=== PATIENT | male | born 1950 | race African-American/Black ===

== ENCOUNTER 2022-01-17 16:39 | Observation (INO) | payer OTHER ==
[2022-01-17 16:57] VITALS: BMI 25.8
[2022-01-17] MEDS ORDERED: Dextrose 50% Abboject 50 ML SYRINGE SLOW IVP PRN (18:33)
[2022-01-17] MEDS ORDERED: HumaLOG 300 UNITS/3 ML VIAL SC PRN ×2 (18:33)
[2022-01-17] MEDS ORDERED: hydrALAZINE 20 MG/ML VIAL SLOW IVP PRN (18:33)
[2022-01-17] MEDS ORDERED: Dextrose 5% in Water 1,000 ML IV PRN (18:33)
[2022-01-17] MEDS ORDERED: Nitroglycerin 0.4 MG TAB (25 Tab Bottle) SL PRN (18:33)
[2022-01-17] MEDS ORDERED: Acetaminophen 325 MG TAB PO PRN (18:33)
[2022-01-17 19:33] LABS: Troponin I 0.018 ng/mL (< 0.028)
[2022-01-17 22:51] LABS: Troponin I 0.027 ng/mL (< 0.028)
[2022-01-17] MEDS: Sodium Chloride 0.9% 1,000 ML IV SCH (23:36)
[2022-01-17] MEDS: Nitroglycerin 2% Ointment 1 INCH/1 GM Packet TOP SCH (23:37)
[2022-01-17] MEDS: Heparin 5,000 UNITS/ML VIAL SC SCH (23:41)
[2022-01-18] MEDS ORDERED: Morphine 4 MG/ML VIAL SLOW IVP SCH (00:45)
[2022-01-18 03:30] LABS: Troponin I 0.027 ng/mL (< 0.028)
[2022-01-18 05:49] LABS: #Neutrophils 7.1 10x3/uL (1.5-8.4); %Basophils 0.2 % (0.0-2.0); %Eosinophils 0.1 % (0.0-6.0); %Lymphocytes 16.3 % (18.0-47.0); %Monocytes 10.1 % (0.0-10.0); Hemoglobin 12.5 g/dL (13.5-17.5); Mean Corpuscular HGB CONC 34.8 g/dL (32.0-36.0); Mean Corpuscular Hemoglobin 31.8 pg (27.0-33.0); Mean Corpuscular Volume 91.3 fl (81.2-95.1); Mean Platelet Volume 10.7 fl (7.4-10.4); Platelet Count 175 10x3/uL (150-450); RBC Distribution Width 12.8 % (11.5-14.5); Red Blood Cell (RBC) Count 3.93 10x6/uL (4.32-5.72); White Blood Cell (WBC) Count 9.7 10x3/uL (3.5-10.5)
[2022-01-18 06:02] LABS: Anion Gap 16 mmol/L (10-20); BUN (Urea Nitrogen) 27 mg/dL (8.4-25.7); Calc. Creatinine Clearance 50 mL/min (70-130); Calcium 9.1 mg/dL (7.8-10.44); Carbon Dioxide 21 mmol/L (23-31); Cardiac Risk 3.3 (Less than 4.5); Chloride 103 mmol/L (98-107); Cholesterol 200 mg/dl (< 200 Desired); Estimated GFR 43; Glucose 300 mg/dL (83-110); HDL Cholesterol 60 mg/dL (>60 Neg Risk); LDL Cholesterol, Calculated 126 mg/dL; Potassium 4.3 mmol/L (3.5-5.1); Sodium 136 mmol/L (136-145); Triglycerides 69 mg/dL (Less than 150)
[2022-01-18 06:06] LABS: Troponin I 0.061 ng/mL (< 0.028)
[2022-01-18] MEDS: Nitroglycerin 2% Ointment 1 INCH/1 GM Packet TOP SCH ×2 (07:36→14:44)
[2022-01-18] MEDS ORDERED: Aspirin 325 MG TAB PO SCH (09:00)
[2022-01-18] MEDS ORDERED: Nitroglycerin 0.4 MG TAB (25 Tab Bottle) SL PRN (09:05)
[2022-01-18] MEDS ORDERED: Albuterol Sulfate 2.5 mg/3 ml Neb NEB PRN (09:13)
[2022-01-18] MEDS: Heparin 5,000 UNITS/ML VIAL SC SCH (09:59)
[2022-01-18] MEDS: Sodium Chloride 0.9% 1,000 ML IV SCH (12:50)
[2022-01-18 12:54] VITALS: BP 158/71; TEMP 98
[2022-01-18] MEDS ORDERED: Gabapentin 300 MG CAP PO SCH (21:00)
[2022-01-19] MEDS ORDERED: Amlodipine 10 MG TAB PO SCH (09:00)
[2022-01-19] MEDS ORDERED: Empagliflozin 10 MG TAB PO SCH (09:00)
[2022-01-19] MEDS ORDERED: [UNRECOGNIZED DRUG - OTHER] PO SCH (09:00)
[2022-01-19] MEDS ORDERED: LEVODOPA PO SCH (09:00)
[2022-01-19] MEDS ORDERED: Donepezil HCl 5 MG TAB PO SCH (09:00)
[2022-01-19] MEDS ORDERED: CARBIDOPA PO SCH (09:00)
[2022-01-19] MEDS ORDERED: Clopidogrel Bisulfate 75 MG TAB PO SCH (09:00)
[2022-01-19] MEDS ORDERED: Bupropion 150 MG XL TAB PO SCH (09:00)
[2022-01-19] MEDS ORDERED: Colchicine 0.6 MG TAB PO SCH (09:00)
== END 2022-01-18 14:54 | disposition home or self-care (01) ==
LOC: INTOOBSV 16:39 → CSHTELE 16:39
PROVIDERS: ADMIT Internal Medicine; ATTEND Internal Medicine
DX: R07.9 Chest pain, unspecified (principal); I12.9 Hypertensive chronic kidney disease with stage 1 through stage 4 chronic kidney disease, or unspecified chronic kidney disease; E11.22 Type 2 diabetes mellitus with diabetic chronic kidney disease; N18.30 Chronic kidney disease, stage 3 unspecified; I25.10 Atherosclerotic heart disease of native coronary artery without angina pectoris; F41.9 Anxiety disorder, unspecified; Z87.891 Personal history of nicotine dependence; Z88.8 Allergy status to other drugs, medicaments and biological substances; Z95.5 Presence of coronary angioplasty implant and graft; Z79.899 Other long term (current) drug therapy
CPT/HCPCS: 80048; 80061; 82962 ×2; 84484 ×3; 85025; 93005; 96372 ×2; 96374; 96375; G0378 ×2; 36415; 36416; 93010; J0360; J1644; J2270; J7050

== ENCOUNTER 2022-10-05 15:19 | Outpatient (CLI) | payer OTHER | END 2022-10-05 15:20 | disposition home or self-care (01) | LOC: CSHRAD 15:19 | PROVIDERS: ATTEND Specialist | DX: R06.02 Shortness of breath (principal) | CPT/HCPCS: 71046 ==

== ENCOUNTER 2022-10-20 10:00 | Emergency (ER) | payer OTHER ==
[2022-10-20 10:48] LABS: #Eosinphils 0.1 10x3/uL (0.0-0.5); #Monocytes 0.5 10x3/uL (0.0-1.1); #Neutrophils 3.1 10x3/uL (1.5-8.4); %Basophils 0.3 % (0.0-2.0); %Eosinophils 2.3 % (0.0-6.0); %Lymphocytes 37.4 % (18.0-47.0); %Monocytes 7.7 % (0.0-10.0); %Neutrophils 52.1 % (40.0-75.0); Hematocrit 39.6 % (38.8-50.0); Hemoglobin 12.8 g/dL (13.5-17.5); Mean Corpuscular HGB CONC 32.3 g/dL (32.0-36.0); Mean Corpuscular Hemoglobin 30.4 pg (27.0-33.0); Mean Corpuscular Volume 94.1 fl (81.2-95.1); Platelet Count 221 10x3/uL (150-450); RBC Distribution Width 12.1 % (11.5-14.5); Red Blood Cell (RBC) Count 4.21 10x6/uL (4.32-5.72)
[2022-10-20 11:23] LABS: Troponin I 0.015 ng/mL (< 0.028)
[2022-10-20 11:27] LABS: ALT (SGPT) 18 U/L (8-55); AST (SGOT) 18 U/L (5-34); Albumin 4.2 g/dL (3.4-4.8); Alkaline Phosphatase 63 U/L (40-110); Anion Gap 14 mmol/L (10-20); BUN (Urea Nitrogen) 15 mg/dL (8.4-25.7); Bilirubin, Total 0.7 mg/dL (0.2-1.2); Calc. Creatinine Clearance 0 mL/min (70-130); Calcium 9.6 mg/dL (7.8-10.44); Carbon Dioxide 26 mmol/L (23-31); Chloride 104 mmol/L (98-107); Estimated GFR 41; Globulin 3.7 g/dL (2.4-3.5); Glucose 209 mg/dL (83-110); Magnesium 1.6 mg/dL (1.6-2.6); Potassium 4.9 mmol/L (3.5-5.1); Protein, Total 7.9 g/dL (5.8-8.1); Sodium 139 mmol/L (136-145)
[2022-10-20 12:08] LABS: Bilirubin Neg (Negative); Blood, Urine 10 (Negative); Clarity Clear (Clear); Glucose, Urine (Dipstick) 100 mg/dL (Negative); Ketone, Urine Negative (Negative); Leukocyte Negative (Negative); Nitrite Negative (Negative); Protein, Urine (Dipstick) 500 mg/dl (Neg-Trace); Urobilinogen Normal mg/dL (Less than 2); pH, Urine 6.5 (5.0-9.0)
[2022-10-20 12:29] LABS: Bacteria/HPF Rare-Few HPF (None Seen); CAUTI Indications for Culture Pelvic or flank pain; RBC/HPF 0-3 HPF (0-3); WBC/HPF 0-3 HPF (0-3)
[2022-10-20 12:31] LABS: Urine Culture Reflex No No
[2022-10-20 13:15] LABS: SARS-CoV-2 NAA Rapid Test Not Detected (NotDetected)
[2022-10-20 13:33] LABS: PTT 25.2 sec (22.0-33.0)
== END 2022-10-20 12:58 | disposition home or self-care (01) ==
LOC: CSHERS 10:00
DX: R53.81 Other malaise (principal); I10 Essential (primary) hypertension; I25.10 Atherosclerotic heart disease of native coronary artery without angina pectoris; E11.9 Type 2 diabetes mellitus without complications; Z87.891 Personal history of nicotine dependence; Z20.822 Contact with and (suspected) exposure to COVID-19
CPT/HCPCS: 0240U; 71045; 74176; 81001; 83735; 84484; 85610; 85730; 93005; 36415; 80053; 84443; 85025

== ENCOUNTER → 2022-11-27 | Day surgery (SDC) | payer OTHER ==
[2022-11-24 11:26] VITALS: BMI 25.6
[~2022-11-27] MED LIST: PROPOFOL 60 ML ONE
== END ==
LOC: CSHSDC 06:21
PROVIDERS: ATTEND Internal Medicine Gastroenterology
DX: R10.9 Unspecified abdominal pain (principal); E11.9 Type 2 diabetes mellitus without complications; I10 Essential (primary) hypertension; I25.10 Atherosclerotic heart disease of native coronary artery without angina pectoris; Z80.0 Family history of malignant neoplasm of digestive organs; Z86.010 Personal history of colon polyps; Z88.8 Allergy status to other drugs, medicaments and biological substances; Z53.8 Procedure and treatment not carried out for other reasons
CPT/HCPCS: J2704

== ENCOUNTER 2022-12-25 07:57 | Day surgery (SDC) | payer OTHER ==
[2022-12-22 10:48] VITALS: BMI 26.2
[2022-12-25] MEDS ORDERED: Midazolam HCl 2 mg/2 ml Vial ONE (10:20)
[2022-12-25] MEDS ORDERED: PROPOFOL 80 ML ONE (10:30)
[2022-12-25] MEDS ORDERED: PHENYLEPHRINE-NS 100 MCG/ML 10 ML SYRINGE ONE (10:32)
== END 2022-12-25 11:30 | disposition home or self-care (01) ==
LOC: CSHSDC 07:57
PROVIDERS: ATTEND Internal Medicine Gastroenterology
PROC: 0DBN8ZZ Excision of Sigmoid Colon, Via Natural or Artificial Opening Endoscopic (ICD-10-PCS; principal; 2022-12-25)
DX: Z12.11 Encounter for screening for malignant neoplasm of colon (principal); K57.30 Diverticulosis of large intestine without perforation or abscess without bleeding; K64.9 Unspecified hemorrhoids; K62.89 Other specified diseases of anus and rectum; E11.9 Type 2 diabetes mellitus without complications; E78.5 Hyperlipidemia, unspecified; I10 Essential (primary) hypertension; I25.10 Atherosclerotic heart disease of native coronary artery without angina pectoris; K21.9 Gastro-esophageal reflux disease without esophagitis; F32.A Depression, unspecified; Z88.8 Allergy status to other drugs, medicaments and biological substances; Z79.899 Other long term (current) drug therapy; Z98.890 Other specified postprocedural states
CPT/HCPCS: J2250; J2704

== ENCOUNTER 2023-02-01 06:04 | Day surgery (SDC) | payer OTHER ==
[2023-01-31 10:41] VITALS: BMI 25.5
[2023-02-01] MEDS ORDERED: Lidocaine 2% MPF 10 ML AMP (For Epidural Use) ONE (07:44)
[2023-02-01] MEDS ORDERED: PROPOFOL 40 ML ONE (07:44)
== END 2023-02-01 09:25 | disposition home or self-care (01) ==
LOC: CSHSDC 06:04
PROVIDERS: ATTEND Internal Medicine Gastroenterology
PROC: 0DJ08ZZ Inspection of Upper Intestinal Tract, Via Natural or Artificial Opening Endoscopic (ICD-10-PCS; principal; 2023-02-01)
DX: R10.9 Unspecified abdominal pain (principal); K21.9 Gastro-esophageal reflux disease without esophagitis; I10 Essential (primary) hypertension; I25.10 Atherosclerotic heart disease of native coronary artery without angina pectoris; E11.9 Type 2 diabetes mellitus without complications; G20.A1 Parkinson's disease without dyskinesia, without mention of fluctuations; B19.20 Unspecified viral hepatitis C without hepatic coma; J45.909 Unspecified asthma, uncomplicated; Z86.010 Personal history of colon polyps; Z80.0 Family history of malignant neoplasm of digestive organs; Z88.8 Allergy status to other drugs, medicaments and biological substances; Z96.41 Presence of insulin pump (external) (internal)
CPT/HCPCS: J2704

== ENCOUNTER 2023-02-07 22:20 | Inpatient (IN) | payer OTHER ==
[2023-02-07] MEDS ORDERED: Ondansetron PF 4 MG/2 ML Vial IVP PRN (23:57)
[2023-02-07] MEDS ORDERED: Senokot S 8.6-50 MG TAB PO PRN (23:57)
[2023-02-07] MEDS ORDERED: Acetaminophen 325 MG TAB PO PRN (23:57)
[2023-02-07] MEDS ORDERED: Dextrose 5% in Water 1,000 ML IV PRN (23:57)
[2023-02-07] MEDS ORDERED: Glucagon 1 MG/ML KIT IM PRN (23:57)
[2023-02-07] MEDS ORDERED: Calcium Carbonate 500 MG ChewTAB PO PRN (23:57)
[2023-02-07] MEDS ORDERED: Dextrose 50% Abboject 50 ML SYRINGE SLOW IVP PRN (23:57)
[2023-02-07] MEDS ORDERED: Nitroglycerin 0.4 MG TAB (25 Tab Bottle) SL PRN (23:59)
[2023-02-08] MEDS ORDERED: Ventolin HFA Inhaler 60 PUFF INHALER INH PRN
[2023-02-08] MEDS ORDERED: cloNIDine 0.1 MG TAB PO PRN (00:04)
[2023-02-08] MEDS ORDERED: Ketorolac Tromethamine 30 MG (1 mL) VIAL IVP SCH (00:15)
[2023-02-08 00:34] VITALS: BMI 25.5
[2023-02-08 05:10] LABS: Anion Gap 11 mmol/L (10-20); BUN (Urea Nitrogen) 16 mg/dL (8.4-25.7); CK (CPK) 126 U/L (30-200); Calc. Creatinine Clearance 40 mL/min (70-130); Calcium 8.7 mg/dL (7.8-10.44); Carbon Dioxide 28 mmol/L (23-31); Chloride 103 mmol/L (98-107); Estimated GFR 33; Glucose 155 mg/dL (83-110); Potassium 4.8 mmol/L (3.5-5.1); Sodium 137 mmol/L (136-145)
[2023-02-08 05:35] LABS: Troponin I 0.072 ng/mL (< 0.028)
[2023-02-08 05:40] LABS: Bilirubin Neg (Negative); Blood, Urine Negative (Negative); Clarity Clear (Clear); Glucose, Urine (Dipstick) Normal (Negative); Ketone, Urine Negative (Negative); Leukocyte Negative (Negative); Nitrite Negative (Negative); Protein, Urine (Dipstick) 30 mg/dl (Neg-Trace); Specific Gravity, Urine 1.005 (1.005-1.030); Urobilinogen Normal mg/dL (Less than 2); pH, Urine 6.5 (5.0-9.0)
[2023-02-08 05:49] LABS: Bacteria/HPF None Seen HPF (None Seen); RBC/HPF None Seen HPF (0-3); Squamous Epithelial 0-3 HPF (0-3); WBC/HPF 0-3 HPF (0-3)
[2023-02-08] MEDS ORDERED: [UNRECOGNIZED DRUG - OTHER] IH SCH (09:00)
[2023-02-08] MEDS ORDERED: FLU VACC QS2023(65UP)/MF59C/PF 60 MCG/0.5 ML SYRINGE IM ONE (09:00)
[2023-02-08] MEDS ORDERED: Enoxaparin 40 MG (0.4 mL) SYRINGE SC SCH ×2 (09:00→21:00)
[2023-02-08] MEDS: Clopidogrel Bisulfate 75 MG TAB PO SCH (09:28)
[2023-02-08] MEDS: Ranolazine 500 MG ER.TAB PO SCH ×2 (09:28→20:20)
[2023-02-08] MEDS: Aspirin 81 mg Enteric Coated Tablet PO SCH (09:28)
[2023-02-08] MEDS: Gabapentin 300 MG CAP PO SCH ×2 (09:29→20:20)
[2023-02-08] MEDS: Isosorbide Mononitrate 60 MG ER.TAB PO SCH (09:30)
[2023-02-08] MEDS: Furosemide 40 MG TAB PO SCH (09:30)
[2023-02-08] MEDS: Amlodipine 10 MG TAB PO SCH (09:30)
[2023-02-08] MEDS: Carbidopa/Levodopa 25-100 mg Tablet PO SCH (20:20)
[2023-02-08] MEDS: HYDROcodone/Acetaminophen 5/325 mg Tablet PO PRN (20:21)
[2023-02-08] MEDS ORDERED: Non-Formulary Medication 1 EACH (Gabapentin [Gabapentin] 600 MG Tablet) PO SCH (21:00)
[2023-02-09] MEDS: HYDROcodone/Acetaminophen 5/325 mg Tablet PO PRN ×2 (03:55→09:54)
[2023-02-09 03:58] LABS: Anion Gap 11 mmol/L (10-20); BUN (Urea Nitrogen) 18 mg/dL (8.4-25.7); Calc. Creatinine Clearance 44 mL/min (70-130); Carbon Dioxide 27 mmol/L (23-31); Chloride 107 mmol/L (98-107); Estimated GFR 37; Glucose 59 mg/dL (83-110); Potassium 5.3 mmol/L (3.5-5.1); Sodium 140 mmol/L (136-145)
[2023-02-09 04:37] LABS: #Eosinphils 0.3 10x3/uL (0.0-0.5); #Monocytes 0.5 10x3/uL (0.0-1.1); #Neutrophils 1.9 10x3/uL (1.5-8.4); %Basophils 0.6 % (0.0-2.0); %Eosinophils 5.7 % (0.0-6.0); %Lymphocytes 44.8 % (18.0-47.0); %Monocytes 10.3 % (0.0-10.0); %Neutrophils 38.4 % (40.0-75.0); Hematocrit 33.1 % (38.8-50.0); Hemoglobin 11.1 g/dL (13.5-17.5); Mean Corpuscular HGB CONC 33.5 g/dL (32.0-36.0); Mean Corpuscular Hemoglobin 31.5 pg (27.0-33.0); Mean Platelet Volume 9.9 fl (7.4-10.4); Platelet Count 197 10x3/uL (150-450); RBC Distribution Width 12.7 % (11.5-14.5); Red Blood Cell (RBC) Count 3.52 10x6/uL (4.32-5.72)
[2023-02-09] MEDS ORDERED: Furosemide 40 MG TAB PO SCH (09:00)
[2023-02-09] MEDS: Ranolazine 500 MG ER.TAB PO SCH (09:53)
[2023-02-09] MEDS: Gabapentin 300 MG CAP PO SCH (09:53)
[2023-02-09] MEDS: Amlodipine 10 MG TAB PO SCH (09:53)
[2023-02-09] MEDS: Clopidogrel Bisulfate 75 MG TAB PO SCH (09:53)
[2023-02-09] MEDS: Aspirin 81 mg Enteric Coated Tablet PO SCH (09:53)
[2023-02-09] MEDS: Isosorbide Mononitrate 60 MG ER.TAB PO SCH (09:53)
[2023-02-09] MEDS: Furosemide 40 MG TAB PO SCH (09:54)
[2023-02-09] MEDS: Carbidopa/Levodopa 25-100 mg Tablet PO SCH ×2 (09:57→14:19)
[2023-02-09 16:16] VITALS: BP 133/63; TEMP 97.7
== END 2023-02-09 16:51 | disposition home or self-care (01) | DRG 303 ==
LOC: CSHTELE 23:26 → OBSVTOIN 02-09 16:18
PROVIDERS: ADMIT Student in an Organized Health Care Education/Training Program; ATTEND Family Medicine
DX: I25.119 Atherosclerotic heart disease of native coronary artery with unspecified angina pectoris (principal); I13.0 Hypertensive heart and chronic kidney disease with heart failure and stage 1 through stage 4 chronic kidney disease, or unspecified chronic kidney disease; I50.32 Chronic diastolic (congestive) heart failure; I24.89 Other forms of acute ischemic heart disease; I16.0 Hypertensive urgency; E11.22 Type 2 diabetes mellitus with diabetic chronic kidney disease; Z88.8 Allergy status to other drugs, medicaments and biological substances; Z79.899 Other long term (current) drug therapy; Z79.4 Long term (current) use of insulin; Z98.49 Cataract extraction status, unspecified eye; Z82.49 Family history of ischemic heart disease and other diseases of the circulatory system; Z87.891 Personal history of nicotine dependence; N18.30 Chronic kidney disease, stage 3 unspecified; I70.212 Atherosclerosis of native arteries of extremities with intermittent claudication, left leg; I70.211 Atherosclerosis of native arteries of extremities with intermittent claudication, right leg; E11.51 Type 2 diabetes mellitus with diabetic peripheral angiopathy without gangrene; E78.2 Mixed hyperlipidemia; Z95.5 Presence of coronary angioplasty implant and graft
CPT/HCPCS: 36415; 36416; 76705; 80048; 81001; 82550; 84484; 85025; J1650; J1885; J7999

== ENCOUNTER 2024-01-01 15:19 | Inpatient (IN) | payer OTHER ==
[2024-01-01 16:38] LABS: Acetaminophen Less than 10 mcg/mL (Less than 10); Alcohol Less than 10.0 mg/dL (Less than 10); Salicylate Less than 8.0 mg/dL (Less than 8.0)
[2024-01-01 16:40] LABS: ALT (SGPT) 17 U/L (8-55); AST (SGOT) 19 U/L (5-34); Alkaline Phosphatase 60 U/L (40-110); Anion Gap 15 mmol/L (10-20); BUN (Urea Nitrogen) 17 mg/dL (8.4-25.7); Bilirubin, Total 0.5 mg/dL (0.2-1.2); Calc. Creatinine Clearance 0 mL/min (70-130); Calcium 9.8 mg/dL (7.8-10.44); Carbon Dioxide 21 mmol/L (23-31); Chloride 105 mmol/L (98-107); Estimated GFR 44; Globulin 3.7 g/dL (2.4-3.5); Glucose 93 mg/dL (83-110); Protein, Total 7.7 g/dL (5.8-8.1); Sodium 137 mmol/L (136-145)
[2024-01-01 16:46] LABS: #Basophils 0.04 10x3/uL (0.0-0.2); #Eosinophils 0.18 10x3/uL (0.0-0.5); #Monocytes 0.52 10x3/uL (0.0-1.1); #Neutrophils 2.67 10x3/uL (1.5-8.4); %Basophils 0.7 % (0.0-2.0); %Lymphocytes 41.9 % (18.0-47.0); %Monocytes 8.8 % (0.0-10.0); %Neutrophils 45.1 % (40.0-75.0); Hematocrit 39.7 % (38.8-50.0); Hemoglobin 13.4 g/dL (13.5-17.5); Mean Corpuscular HGB CONC 33.8 g/dL (32.0-36.0); Mean Corpuscular Hemoglobin 31.5 pg (27.0-33.0); Mean Corpuscular Volume 93.4 fL (81.2-95.1); Mean Platelet Volume 10.2 fL (7.4-10.4); Platelet Count 238 10x3/uL (150-450); RBC Distribution Width 12.2 % (11.5-14.5); Red Blood Cell (RBC) Count 4.25 10x6/uL (4.32-5.72); Troponin I 0.015 ng/mL (< 0.028); White Blood Cell (WBC) Count 5.9 10x3/uL (3.5-10.5)
[2024-01-01 16:50] LABS: Amphetamine Not Detected (NotDetected); Barbiturates Screen Not Detected (NotDetected); Benzodiazepine Screen Not Detected (NotDetected); Cocaine Metabolite Screen Not Detected (NotDetected); Methadone Not Detected (NotDetected); Methamphetamine Not Detected (NotDetected); Opiate Screen Not Detected (NotDetected); Oxycodone Screen Not Detected (NotDetected); Phencyclidine (PCP) Not Detected (NotDetected); THC/Cannabinoid Screen Detected (NotDetected); Tricyclic Screen Not Detected (NotDetected)
[2024-01-01] MEDS ORDERED: hydrALAZINE 20 MG/ML VIAL ONE (17:54)
[2024-01-01] MEDS ORDERED: Ketorolac Tromethamine 30 MG (1 mL) VIAL ONE (18:26)
[2024-01-01] MEDS ORDERED: niCARdipine 25 MG/10 ML SDV ONE (19:02)
[2024-01-01] MEDS ORDERED: Nitroglycerin 2% Ointment 1 INCH/1 GM Packet ONE (19:02)
[2024-01-01] MEDS ORDERED: Bisacodyl 5 MG TAB PO PRN (19:36)
[2024-01-01] MEDS ORDERED: Acetaminophen 325 MG TAB PO PRN (19:36)
[2024-01-01] MEDS ORDERED: Senokot S 8.6-50 MG TAB PO PRN (19:36)
[2024-01-01 19:51] LABS: Troponin I 0.025 ng/mL (< 0.028)
[2024-01-01] MEDS ORDERED: Ondansetron PF 4 MG/2 ML Vial ONE (19:52)
[2024-01-01] MEDS ORDERED: Morphine 2 MG/ML VIAL ONE (20:35)
[2024-01-01] MEDS ORDERED: Albuterol 2.5 MG (3 mL) NEB NEB PRN (21:14)
[2024-01-01] MEDS ORDERED: Ranolazine ER 500 MG TAB PO SCH (21:18)
[2024-01-01] MEDS ORDERED: Lorazepam 1 MG TAB PO PRN (21:29)
[2024-01-01] MEDS ORDERED: Lorazepam 2 MG/ML VIAL IM PRN (21:29)
[2024-01-01] MEDS ORDERED: Ondansetron ODT 4 MG TAB PO PRN (21:29)
[2024-01-01] MEDS ORDERED: Electrolyte Replacement Protocol 1 EACH FS SCH (21:30)
[2024-01-01] MEDS ORDERED: Thiamine HCl 200 MG/2 ML VIAL SLOW IVP SCH (21:30)
[2024-01-01 21:44] VITALS: BMI 25.9
[2024-01-01] MEDS ORDERED: Glucagon 1 MG/ML KIT IM PRN (21:52)
[2024-01-01] MEDS ORDERED: Dextrose 50% Abboject 50 ML SYRINGE SLOW IVP PRN (21:52)
[2024-01-01] MEDS ORDERED: Dextrose 5% in Water 1,000 ML IV PRN (21:52)
[2024-01-01] MEDS ORDERED: Famotidine 20 MG TAB PO SCH (22:00)
[2024-01-01] MEDS ORDERED: Nitroglycerin 2% Ointment 1 INCH/1 GM Packet TOP SCH ×2 (22:00)
[2024-01-02] MEDS ORDERED: Furosemide 40 MG TAB PO SCH (07:30)
[2024-01-02] MEDS ORDERED: Pentoxifylline 400 MG ER.TAB PO SCH (08:00)
[2024-01-02] MEDS ORDERED: Multivit, Therapeutic 1 TAB PO SCH (09:00)
[2024-01-02] MEDS ORDERED: Amlodipine 10 MG TAB PO SCH (09:00)
[2024-01-02] MEDS ORDERED: cloNIDine 0.1 MG TAB PO SCH (09:00)
[2024-01-02] MEDS ORDERED: Enoxaparin 40 MG (0.4 mL) SYRINGE SC SCH (09:00)
[2024-01-02] MEDS ORDERED: Carbidopa/Levodopa 25-100 mg Tablet PO SCH (09:00)
[2024-01-02] MEDS ORDERED: hydrALAZINE 25 MG TAB PO SCH (09:00)
[2024-01-02] MEDS ORDERED: Gabapentin 300 MG CAP PO SCH (09:00)
[2024-01-02] MEDS ORDERED: Clopidogrel Bisulfate 75 MG TAB PO SCH (09:00)
[2024-01-02] MEDS ORDERED: Isosorbide Mononitrate 60 MG ER.TAB PO SCH (09:00)
[2024-01-02] MEDS ORDERED: Folic Acid 1 MG TAB PO SCH (09:00)
[2024-01-02] MEDS ORDERED: cloNIDine 0.1 MG TAB ONE (19:58)
[2024-01-02] MEDS ORDERED: Gabapentin 300 MG CAP ONE (19:58)
[2024-01-02] MEDS ORDERED: hydrALAZINE 25 MG TAB ONE (19:58)
[2024-01-02] MEDS ORDERED: Ranolazine ER 500 MG TAB ONE (19:59)
[2024-01-02] MEDS ORDERED: Isosorbide Mononitrate 60 MG ER.TAB ONE (19:59)
[2024-01-02] MEDS ORDERED: Lorazepam 1 MG TAB PO PRN (21:29)
[2024-01-03] MEDS ORDERED: Ondansetron ODT 4 MG TAB ONE (05:17)
[2024-01-03] MEDS ORDERED: Folic Acid 1 MG TAB ONE (10:18)
[2024-01-03] MEDS ORDERED: Aspirin 81 mg Enteric Coated Tablet ONE (10:18)
[2024-01-03] MEDS ORDERED: Clopidogrel Bisulfate 75 MG TAB ONE (10:18)
[2024-01-03] MEDS ORDERED: Enoxaparin 40 MG (0.4 mL) SYRINGE ONE (10:18)
[2024-01-03] MEDS ORDERED: Gabapentin 300 MG CAP ONE (10:18)
[2024-01-03] MEDS ORDERED: Isosorbide Mononitrate 60 MG ER.TAB ONE (10:19)
[2024-01-03] MEDS ORDERED: Ranolazine ER 500 MG TAB ONE (10:19)
[2024-01-03] MEDS ORDERED: Multivit, Therapeutic 1 TAB ONE (10:19)
[2024-01-03] MEDS ORDERED: Lorazepam 1 MG TAB PO PRN (21:29)
[2024-01-03 22:45] LABS: Troponin I 0.104 ng/mL (< 0.028)
[2024-01-04 21:00] LABS: Anion Gap 14 mmol/L (10-20); BUN (Urea Nitrogen) 21 mg/dL (8.4-25.7); Carbon Dioxide 21 mmol/L (23-31); Chloride 105 mmol/L (98-107); Potassium 4.5 mmol/L (3.5-5.1); Sodium 135 mmol/L (136-145)
[2024-01-04 21:01] LABS: Calc. Creatinine Clearance 35 mL/min (70-130); Calcium 8.6 mg/dL (7.6-10.4); Cardiac Risk 3.6 (Less than 4.5); Cholesterol 176 mg/dL (< 200 Desired); Estimated GFR 28; Glucose 204 mg/dL (83-110); HDL Cholesterol 49 mg/dL (>60 Neg Risk); LDL Cholesterol, Calculated 119 mg/dL; Triglycerides 40 mg/dL (Less than 150)
[2024-01-04] MEDS ORDERED: Lorazepam 0.5 MG TAB PO PRN (21:29)
[2024-01-04] MEDS ORDERED: Thiamine 100 MG TAB PO SCH (21:30)
[2024-01-04 21:44] LABS: Hemoglobin A1c 5.8 % (4.0-6.0)
== END 2024-01-03 12:30 | disposition home or self-care (01) | DRG 305 ==
LOC: CSHERS 15:19 → CSHTELE 19:36
PROVIDERS: ADMIT Family Medicine; ATTEND Internal Medicine
DX: I16.1 Hypertensive emergency (principal); I25.110 Atherosclerotic heart disease of native coronary artery with unstable angina pectoris; I50.32 Chronic diastolic (congestive) heart failure; E11.51 Type 2 diabetes mellitus with diabetic peripheral angiopathy without gangrene; E11.22 Type 2 diabetes mellitus with diabetic chronic kidney disease; Z66 Do not resuscitate; F10.90 Alcohol use, unspecified, uncomplicated; N18.32 Chronic kidney disease, stage 3b; I13.0 Hypertensive heart and chronic kidney disease with heart failure and stage 1 through stage 4 chronic kidney disease, or unspecified chronic kidney disease; Z88.8 Allergy status to other drugs, medicaments and biological substances; Z79.4 Long term (current) use of insulin
CPT/HCPCS: 36415; 36416; 71045; 80048; 80053; 80061; 80306; 80307; 83036; 83880; 84484; 85025; 93005; 96365; 96366; 96375; J0360; J1885; J2272; J2405

== ENCOUNTER 2024-11-04 07:58 | Outpatient (CLI) | payer OTHER ==
[2024-11-04 09:37] LABS: Estimated GFR - POC 36.0
[2024-11-04] MEDS ORDERED: Iopamidol 370 76% 100 ML VIAL ONE (12:30)
== END 2024-11-04 07:59 | disposition home or self-care (01) ==
LOC: CSHULT 07:58
PROVIDERS: ATTEND Internal Medicine Gastroenterology
DX: R10.9 Unspecified abdominal pain (principal); K59.00 Constipation, unspecified; R63.0 Anorexia; Z80.0 Family history of malignant neoplasm of digestive organs; Z12.11 Encounter for screening for malignant neoplasm of colon; N18.9 Chronic kidney disease, unspecified; I70.8 Atherosclerosis of other arteries; I77.1 Stricture of artery
CPT/HCPCS: 36415; 74175; 76705; 82565